=== PATIENT | female | born 1930 | race Caucasian/White ===

== ENCOUNTER → 2018-12-24 | Outpatient (CLI) | payer OTHER ==
[~2018-12-24] MED LIST: ACID REDUCER10 MG PO; ADVIL200 M1 PO; AMARYL1 M1 PO; AMLODIPINE10 MG PO; ASPIR LOW81 MG PO; ASPIRIN CHILDRE81 MG PO; ATIVAN0.5 MG PO; CARVEDILOL6.25 MG PO; CEFDINIR300 MG PO; CYCLOBENZAPRINE10 MG PO; DIABETA2.5 MG PO; DOXYCYCLINE100 M3 PO; ERY PO; FERRETTS325 MG PO; FLORASTOR250 MG PO; GLIPIZIDE5 MG PO; HEPARIN SO5000 UNIT2 SC; HYDROCODONE BIT1 T11 PO; LASIX20 MG PO; LISINOPRIL-HYDR1 TA1 PO; LOPRESSOR25 MG PO; METFORMIN1000 MG PO; METFORMIN500 MG PO; MOBIC15 MG PO; MOTRIN800 MG PO; MUCINEX ER600 MG PO; MULTI-VITAMINS1 TA1 PO; NEURONTIN300 MG PO; NEXIUM40 MG PO; NORCO 10-325 T1 EACH PO; NOVOLOG10 ML IV; OMNICEF300 MG PO; PLAVIX75 M1 PO; REMERON15 M2 PO; Synthroid,Levo50 MCG PO; TOPROL XL25 MG PO; TRAMADOL HCL50 MG PO; TRIAMTERENE/HCT1 CAP PO; VITAMIN C500 M4 PO; VITAMIN D10000 UNIT PO; VITAMIN D50000 UNIT PO; XANAX0.25 MG PO; XANAX0.5 MG PO; ZINC SULFATE220 M2 PO
== END | disposition home or self-care (01) ==
LOC: RAD 11:36
DX: R06.2 Wheezing (principal); R09.89 Other specified symptoms and signs involving the circulatory and respiratory systems; R05 Cough; E11.9 Type 2 diabetes mellitus without complications; I10 Essential (primary) hypertension; Z95.1 Presence of aortocoronary bypass graft

== ENCOUNTER 2019-03-28 20:25 | Inpatient (IN) | payer OTHER ==
[~2019-03-28] VITALS: Ht 155 cm; Wt 53.6 kg
--- NOTE | ~2019-03-28 | EKG ---
[employer], [place] ELECTROCARDIOGRAM REPORT NAME: SÁNCHEZ MIRAMONTES UNIT #: [id number] ROOM: 511 DOCTOR: KARLI DRAFT REPORT BIRTHDATE: [birth year] [facility] Test Date: 2019-03-28 Test Time: 20:26:49 Pat Name: SÁNCHEZ MIRAMONTES Department: ER Room: 511 Gender: F Dry Lumber Grader: : 1930 Requested By: LUPE MILLER Order Number: [id number] Reading MD: Travis Regalado MD Measurements Intervals [place] Rate: 82 P: 8 WY: 172 QRS: -60 QRSD: 134 T: 76 QT: 427 QTc: 499 Interpretive Statements Sinus rhythm Supraventricular bigeminy RBBB and LAFB Probable left ventricular hypertrophy Electronically Signed On 03-29-2019 15:06:05 PDT by Travis Regalado MD CM:EKGRPT:ELECTROCARDIOGRAM REPORT 25 1506 LUPE GOMEZ DRAFT REPORT LUPE MILLER DO
[~2019-03-28 20:25] MED LIST changes: -CARVEDILOL6.25 MG PO; -LASIX20 MG PO; -MUCINEX ER600 MG PO
[2019-03-28 21:06] LABS: HEMATOCRIT 30.7 % (37.0-47.0); MEAN CELL VOLUME 97.5 fl (81.0-99.0); MEAN CORPUSCULAR HGB 31.7 pg (27.0-31.0); MEAN CORPUSCULAR HGB CONC 32.6 g/dl (33.0-37.0); MEAN PLATELET VOLUME 10.3 fl (9.6-12.3); NUCLEATED RED BLOOD CELL 0.1 10*3/uL (0.0-0.0); NUCLEATED RED BLOOD CELL 0.8 % (0.0-0.0); PLATELET COUNT AUTOMATED 360 10*3/uL (130-400); RED BLOOD COUNT 3.15 10*6/uL (4.10-5.10); RED CELL DISTRI WIDTH 17.3 % (0-14.5); WHITE BLOOD COUNT 13.3 10*3/uL (4.8-10.8)
[2019-03-28 21:23] LABS: ALBUMIN 3.1 gm/dl (3.1-4.5); CREATININE 1.33 mg/dL (0.55-1.02); POTASSIUM 4.4 mmol/L (3.5-5.1); TOTAL PROTEIN 7.5 gm/dL (6.4-8.2)
[2019-03-28 21:24] LABS: TROPONIN I 0.036 ng/ml (<0.045)
[2019-03-28 21:30] LABS: OVALOCYTES FEW; POLYCHROMASIA SLIGHT; TOTAL CELLS COUNTED 100 #CELLS
[2019-03-28 21:31] LABS: PLATELET SUFFICIENCY NORMAL (NORMAL)
[2019-03-28 22:32] LABS: ACT PARTIAL THROMBO TIME 25.6 SECONDS (20.0-32.1); INTERNATIONAL NORM RATIO 1.1 (2.0-3.5)
[2019-03-28 23:01] VITALS: BP 132/82
[2019-03-29] VITALS (10 sets, daily range): BP systolic 132–176; BP diastolic 56–86
--- NOTE | 2019-03-29 00:21 | NUR ---
A 88, admitted to 5E, under the services of REHAN Cook DO with a diagnosis of CHF, SEVERE SEPSIS, PNA. Chief complaint is SOB. Patient arrived via ambulatory from ER. Monitor applied. Initial assessment completed. Vital signs taken and recorded. REHAN COOK DO notified of admission to the unit. Orders received. See assessment for past medical history, medications and allergies. Patient and/or family oriented to unit. [facility] visitation policy reviewed. Clothing/patient valuable form completed. MARGIE SHEA
--- NOTE | 2019-03-29 00:30 | NUR ---
MEDICATION RECONCILIATION COMPLETED WITH [id number]. PHARMACY UPDATED.
[2019-03-29 06:27] LABS: HEMATOCRIT 29.6 % (37.0-47.0); HEMOGLOBIN 9.5 g/dl (12.0-16.0); MEAN CELL VOLUME 97.7 fl (81.0-99.0); MEAN CORPUSCULAR HGB 31.4 pg (27.0-31.0); MEAN CORPUSCULAR HGB CONC 32.1 g/dl (33.0-37.0); MEAN PLATELET VOLUME 10.6 fl (9.6-12.3); NUCLEATED RED BLOOD CELL 0.1 10*3/uL (0.0-0.0); NUCLEATED RED BLOOD CELL 0.7 % (0.0-0.0); PLATELET COUNT AUTOMATED 360 10*3/uL (130-400); RED BLOOD COUNT 3.03 10*6/uL (4.10-5.10); RED CELL DISTRI WIDTH 17.2 % (0-14.5)
[2019-03-29 06:40] LABS: CREATININE 1.21 mg/dL (0.55-1.02); PHOSPHOROUS 3.2 mg/dL (2.5-4.9); POTASSIUM 4.1 mmol/L (3.5-5.1)
[2019-03-29 06:47] LABS: THYROID STIM HORMONE (HS) 1.71 uIU/ml (0.358-4.75)
[2019-03-29 06:56] LABS: ACANTHOCYTES FEW; OVALOCYTES FEW; PLATELET SUFFICIENCY NORMAL (NORMAL); TOTAL CELLS COUNTED 100 #CELLS
--- NOTE | 2019-03-29 08:46 | NUR ---
PT COMPLAIN OF GENERALIZED ARTHRITIS PAIN, TYLENOL GIVEN PER PATIENT REQUEST. WILL MONITOR FOR EFFECTIVENESS
--- NOTE | 2019-03-29 09:27 | NUR ---
SÁNCHEZ MIRAMONTES [id number] Please refer to the physician's history and physical for past medical history, comorbid conditions, and allergies. Diagnosis: CHF SEVERE SEPSIS PNEUMONIA Donovan Score: 19,LOW OR NO RISK WOUND DESCRIPTIONS: Wound Number: 1 Location of the wound: LEFT LOWER LEG Type of wound: SURGICAL Thickness: Partial Size: 1.6cm X 0.8cm X 0.2cm Tunneling: NONE Undermining: NONE Sinus Tract: NONE Presence of Exudate: NONE Amount: None Color: [place] Odor: None Periwound Skin Appearance: Scar Wound edges: APPROXIMATED Pain (associated with wound): DENIED AT TIME OF ASSESSMENT How does patient state this happened? PATIENT STATES THAT SHE HAD SURGERY "ABOUT A YEAR AGO AND IT NEVER HEALED RIGHT." If wound is on legs/feet or hands, capillary refill time, pulses, color temp, sensation: CAP REFILL <3 SECONDS. COLOR AND TEMP WITH IN NORMAL LIMITS. Surface the patient is resting on: Isoflex SKIN PREVENTION RECOMMENDATION: 1. Pressure redistribution support surface as appropriate 2. Elevate heels 3. Remove boots/TEDS every shift and reapply 4. Head of bed 30 degrees as tolerated 5. Assess nutrition and hydration 6. Manage moisture 7. Avoid the use of containment devices while in bed 8. Use absorptive products on surfaces limit layers of linens on bed 9. Turn and reposition every 1-2 hours in bed and every 1 hour in chair as tolerated 10. Weight shifts every 15 minutes while up in chair 11. Offloading with pillows or device to keep heels elevated off bed 12. Monitor skin at least every shift 13. Inspect under medical devices twice a day WOUND TREATMENT RECOMMENDATIONS: PARTIAL THICKNESS GUIDELINES TO LEFT LOWER LEG: CLEANSE WITH NSS APPLY SUREPREP AROUND THE WOUND ALLOW TO DRY APPLY HYDROGEL AND COVER WITH OPTIFOAM GENTLE.
--- NOTE | 2019-03-29 11:07 | NUR ---
Dr. Santana notified of wound care recommendations.
--- NOTE | 2019-03-29 14:57 | NUR ---
PHYSICAL THERAPY Patient evaluated on 5, full evaluation to follow. Continue with PT as per plan of care with fall and acute debility precautions. Home with family (A) And home health RN and PT prn recommended. PAtient is moderate complexity via chart review, tests and evaluation: 29052. Thank you for this referral. Barbara Arreola,PT
--- NOTE | 2019-03-29 15:21 | NUR ---
Sql Report Writer in to talk to patient. Patient states lives at HOME with CLAUDIA. There are FEW steps in the home. Physician: NONE AT THIS TIME [facility] Home health services: NONE Patient's level of ADLs: INDEPENDENT Patient has working utilities: YES DME: CANE Follow-up physician's appointment after d/c: WILL GET ONE AND MAKE APPOINTMENT ON DISCHARGE Does patient want to access PORTAL?: NO Discharge plan PT LIVES AT HOME WITH HER GRANDSON AND IS INDEPENDENT IN HER CARE. DENIES ANY NEEDS ON DISCHARGE. STATES SHE IS GOING TO RETURN HOME ON DISCHARGE. STATES SHE USES A CANE OCCASIONALLY IF SHE NEEDS IT. WILL CONTINUE TO FOLLOW. GRANDSON WILL TAKE HER HOME.. ABNER UP
[2019-03-30] VITALS: BP 145/62
[2019-03-30 06:58] LABS: HEMATOCRIT 29.4 % (37.0-47.0); HEMOGLOBIN 9.5 g/dl (12.0-16.0); MEAN CELL VOLUME 98.3 fl (81.0-99.0); MEAN CORPUSCULAR HGB 31.8 pg (27.0-31.0); MEAN CORPUSCULAR HGB CONC 32.3 g/dl (33.0-37.0); MEAN PLATELET VOLUME 10.7 fl (9.6-12.3); NUCLEATED RED BLOOD CELL 0.1 10*3/uL (0.0-0.0); NUCLEATED RED BLOOD CELL 0.7 % (0.0-0.0); PLATELET COUNT AUTOMATED 350 10*3/uL (130-400); RED BLOOD COUNT 2.99 10*6/uL (4.10-5.10); RED CELL DISTRI WIDTH 17.5 % (0-14.5); WHITE BLOOD COUNT 8.1 10*3/uL (4.8-10.8)
[2019-03-30 07:15] LABS: POTASSIUM 3.9 mmol/L (3.5-5.1)
[2019-03-30 07:35] LABS: CREATININE 1.2 mg/dL (0.55-1.02)
[2019-03-30 07:36] LABS: OVALOCYTES FEW; PLATELET SUFFICIENCY NORMAL (NORMAL); POLYCHROMASIA SLIGHT; TOTAL CELLS COUNTED 100 #CELLS
[2019-03-30 08:00] VITALS: BP 140/68
--- NOTE | 2019-03-30 11:40 | NUR ---
PHYSICAL THERAPY Patient was approached several times this am for therapy and was eating breakfast on first attempt, then resting comfortably in bed second attempt. Patient requested to be seen this pm, stating she was tired and wanted to continue to rest this morning. Will continue per POC as able. Hossein Amaya, SMART ENERGY SPECIALIST
[2019-03-30 12:00] VITALS: BP 153/80
--- NOTE | 2019-03-30 12:35 | NUR ---
DR. HARRIS NOTIFIED OF BLOOD SUGAR OF 495 PER GLUCOMETER, OKAY TO GIVE INSULIN PER SLIDING SCALE. PLEASE CHECK BLOOD SUGAR IN ONE HOUR AND CALL WITH RESULTS
--- NOTE | 2019-03-30 12:50 | NUR ---
CONTINUES TO DENY NEEDS ON DISCHARGE. STATES SHE WILL RETURN HOME WITH GRANDSON. WILL CONTINUE TO FOLLOW.
--- NOTE | 2019-03-30 14:40 | NUR ---
PHYSICAL THERAPY Patient seen this pm 1;1 for therapy visit and was just finishing lunch in bed upon therapist arrival. Patient was pleasant and presented with several bouts of increased non productive coughing, along with increased chest congestion. Patient transfers supine to sit EOB and sit to stand CGA x 1 then ambulates with use of st cane, 50'x 1, CGA. Patient demonstrates slow ana, several bouts of unsteady gait pattern and increased fatigue / SOB. Patient instructed on purse lip breathing technique and recorded SpO2 93%, HR 62 bpm on room air. Patient returned to supine in bed and remained with call light, tray table, telephone and bed alarm for safety. Will continue per POC as tolerated, total treatment time 14 minutes. Hossein Amaya, WET TRIMMER
[2019-03-30 16:00] VITALS: BP 158/53
[2019-03-30 20:00] VITALS: BP 155/52
[2019-03-31] VITALS: BP 111/39
[2019-03-31 06:52] LABS: CREATININE 1.33 mg/dL (0.55-1.02)
[2019-03-31 12:00] VITALS: BP 110/80
--- NOTE | 2019-03-31 12:37 | NUR ---
PT WILL BE DISCHARGED TO HOME WHEN MEDICALLY STABLE. WILL CONTINUE TO FOLLOW.
[2019-03-31] MEDS ORDERED: DOXYCYCLINE100 M3 PO (14:29)
[2019-03-31] MEDS ORDERED: MUCINEX ER600 MG PO (14:29)
[2019-03-31] MEDS ORDERED: LASIX20 MG PO (14:29)
[2019-03-31] MEDS ORDERED: CARVEDILOL6.25 MG PO (14:29)
--- NOTE | 2019-03-31 15:35 | NUR ---
PT DISCHARGED HOME AT THIS TIME VIA WHEELCHAIR TO PRIVATE CAR. DISCHARGE INSTRUCTIONS REVIEWED. HEPLOCK AND WEIGHT REDUCING TECHNICIAN DISCONTINUED. PRESCRIPTIONS TO BE PICKED UP AT PHARMACY.
--- NOTE | 2019-04-01 07:21 | NUR ---
PHYSICAL THERAPY CO-SIGN I approve of the Phyical Therapy notes written above. KACI MARKHAM PT
== END 2019-03-31 15:35 | disposition home or self-care (01) | DRG 871 ==
LOC: ED 20:25 → EDHOLD 22:37 → 5E 22:37
PROVIDERS: Internal Medicine; Student in an Organized Health Care Education/Training Program; ADMIT Internal Medicine
DX: A41.9 Sepsis, unspecified organism (principal); I50.41 Acute combined systolic (congestive) and diastolic (congestive) heart failure; J18.1 Lobar pneumonia, unspecified organism; J44.0 Chronic obstructive pulmonary disease with (acute) lower respiratory infection; E44.0 Moderate protein-calorie malnutrition; I13.0 Hypertensive heart and chronic kidney disease with heart failure and stage 1 through stage 4 chronic kidney disease, or unspecified chronic kidney disease; R65.20 Severe sepsis without septic shock; I25.10 Atherosclerotic heart disease of native coronary artery without angina pectoris; F03.90 Unspecified dementia, unspecified severity, without behavioral disturbance, psychotic disturbance, mood disturbance, and anxiety; E11.22 Type 2 diabetes mellitus with diabetic chronic kidney disease; M19.90 Unspecified osteoarthritis, unspecified site; R29.6 Repeated falls; M43.10 Spondylolisthesis, site unspecified; I08.1 Rheumatic disorders of both mitral and tricuspid valves; E11.65 Type 2 diabetes mellitus with hyperglycemia; E03.9 Hypothyroidism, unspecified; D64.9 Anemia, unspecified; N18.2 Chronic kidney disease, stage 2 (mild); I25.2 Old myocardial infarction; Z90.49 Acquired absence of other specified parts of digestive tract; Z95.1 Presence of aortocoronary bypass graft; Z98.42 Cataract extraction status, left eye; Z98.41 Cataract extraction status, right eye; Z90.710 Acquired absence of both cervix and uterus; Z82.49 Family history of ischemic heart disease and other diseases of the circulatory system; Z80.8 Family history of malignant neoplasm of other organs or systems; Z88.2 Allergy status to sulfonamides; Z79.899 Other long term (current) drug therapy; Z79.82 Long term (current) use of aspirin; Z79.890 Hormone replacement therapy; Z79.84 Long term (current) use of oral hypoglycemic drugs; Z68.21 Body mass index [BMI] 21.0-21.9, adult

== ENCOUNTER 2019-04-29 16:00 | Emergency (ER) | payer OTHER ==
[~2019-04-29] VITALS: Ht 157.4 cm; Wt 68.0 kg
[~2019-04-29 16:00] MED LIST changes: +CARVEDILOL6.25 MG PO; +LASIX20 MG PO; +MUCINEX ER600 MG PO
[2019-04-29 16:03] VITALS: BP 177/51
[2019-04-29 17:32] LABS: BASO # 0.1 10*3/uL (0.0-0.1); BASO % 0.8 % (0.0-1.0); EOS # 0.1 10*3/uL (0.0-0.4); EOS % 1.2 % (1.0-4.0); HEMATOCRIT 33.1 % (37.0-47.0); HEMOGLOBIN 11.3 g/dl (12.0-16.0); LYMPH # 2.2 10*3/uL (1.3-4.4); LYMPH % 36.1 % (27.0-41.0); MEAN CELL VOLUME 96.8 fl (81.0-99.0); MEAN CORPUSCULAR HGB CONC 34.1 g/dl (33.0-37.0); MEAN PLATELET VOLUME 10.7 fl (9.6-12.3); MONO # 0.4 10*3/uL (0.1-1.0); MONO % 6.3 % (3.0-9.0); NEUT # 3.3 10*3/uL (2.3-7.9); NEUT % 55.1 % (47.0-73.0); PLATELET COUNT AUTOMATED 193 10*3/uL (130-400); RED BLOOD COUNT 3.42 10*6/uL (4.10-5.10); RED CELL DISTRI WIDTH 18.6 % (0-14.5); WHITE BLOOD COUNT 6.1 10*3/uL (4.8-10.8)
[2019-04-29 17:49] LABS: ALBUMIN 3.7 gm/dl (3.1-4.5); CREATININE 1.37 mg/dL (0.55-1.02); POTASSIUM 3.6 mmol/L (3.5-5.1); TOTAL PROTEIN 7.2 gm/dL (6.4-8.2)
== END 2019-04-29 20:08 | disposition home or self-care (01) ==
LOC: ED 16:00
PROVIDERS: Emergency Medicine
DX: E11.65 Type 2 diabetes mellitus with hyperglycemia (principal); E11.22 Type 2 diabetes mellitus with diabetic chronic kidney disease; I13.0 Hypertensive heart and chronic kidney disease with heart failure and stage 1 through stage 4 chronic kidney disease, or unspecified chronic kidney disease; N18.2 Chronic kidney disease, stage 2 (mild); I50.42 Chronic combined systolic (congestive) and diastolic (congestive) heart failure; I25.10 Atherosclerotic heart disease of native coronary artery without angina pectoris; J44.9 Chronic obstructive pulmonary disease, unspecified; I25.2 Old myocardial infarction; E03.9 Hypothyroidism, unspecified; M19.90 Unspecified osteoarthritis, unspecified site; Z88.2 Allergy status to sulfonamides; Z79.899 Other long term (current) drug therapy; Z79.2 Long term (current) use of antibiotics; Z79.82 Long term (current) use of aspirin; Z79.84 Long term (current) use of oral hypoglycemic drugs; Z90.49 Acquired absence of other specified parts of digestive tract; Z90.710 Acquired absence of both cervix and uterus; Z95.1 Presence of aortocoronary bypass graft

== ENCOUNTER 2019-08-24 20:15 | Emergency (ER) | payer OTHER ==
[~2019-08-24] VITALS: Wt 52.2 kg
[2019-08-24 20:18] VITALS: BP 98/62
== END 2019-08-24 21:58 | disposition home or self-care (01) ==
LOC: ED 20:15
DX: S93.402A Sprain of unspecified ligament of left ankle, initial encounter (principal); E11.22 Type 2 diabetes mellitus with diabetic chronic kidney disease; I13.0 Hypertensive heart and chronic kidney disease with heart failure and stage 1 through stage 4 chronic kidney disease, or unspecified chronic kidney disease; N18.2 Chronic kidney disease, stage 2 (mild); I50.42 Chronic combined systolic (congestive) and diastolic (congestive) heart failure; I25.10 Atherosclerotic heart disease of native coronary artery without angina pectoris; J44.9 Chronic obstructive pulmonary disease, unspecified; F03.90 Unspecified dementia, unspecified severity, without behavioral disturbance, psychotic disturbance, mood disturbance, and anxiety; I25.2 Old myocardial infarction; E03.9 Hypothyroidism, unspecified; Z88.2 Allergy status to sulfonamides; Z79.899 Other long term (current) drug therapy; Z79.2 Long term (current) use of antibiotics; Z79.82 Long term (current) use of aspirin; X58.XXXA Exposure to other specified factors, initial encounter; Y93.89 Activity, other specified; Y92.89 Other specified places as the place of occurrence of the external cause; Y99.8 Other external cause status

== ENCOUNTER 2019-08-26 17:22 | Inpatient (IN) | payer OTHER ==
[~2019-08-26] VITALS: Ht 157.4 cm; Wt 48.8 kg
--- NOTE | ~2019-08-26 | CON ---
[place], [place] REPORT OF CONSULTATION NAME: SÁNCHEZ MIRAMONTES UNIT #: [id number] ROOM: 506 DOCTOR: WHITNEY BROWN MD BIRTHDATE: [birth year] DOS: 08/27/2019 ATTENDING: Dr. Olivarez. CONSULTING: Savannah Brown M.D. WHAT: Left lower extremity. HOW: Insidious. WHEN: Over the last 3 months to 4 months. WHERE: At home. HISTORY OF PRESENT ILLNESS: This is an 89-year-old female who was admitted for inability to ambulate and pain in the left lower extremity. The patient states she recalls no exact injury to the left lower extremity. She has been in the Emergency Room twice within the last week. Initially, x-rays were obtained on the foot and ankle, which were felt to be normal. Knee x-rays were obtained on the second visit along with CT scan of the left lower extremity yesterday. The CT scan revealed severe osteoarthritis in the patellofemoral joint, but no obvious fracture dislocation of the tibia/fibula from the knee all the way down to the ankle. There was also no femoral fracture noted in the knee region. PAST MEDICAL HISTORY: See H and P. PAST SURGICAL HISTORY: No major left knee surgery. No major orthopedic surgery. MEDICATIONS: Home medications include Plavix, Amaryl, Synthroid, multivitamins. ALLERGIES: SULFA MEDICATIONS. FAMILY HISTORY: Noncontributory. SOCIAL HISTORY: The patient lives with a grandson, does not drink alcohol and she is a nonsmoker. REVIEW OF SYSTEMS: Ten-point review of systems is negative from an orthopedic standpoint. PHYSICAL EXAMINATION: VITAL SIGNS: Stable and afebrile. LEFT LOWER EXTREMITY: The patient has [id number] genu valgum in the left knee. No palpable or visible effusion is present. Inspection of the left lower extremity does show a 15 cm healed laceration over the medial head of the gastrocnemius and the tibial shaft, which is oblique and has a very small punctate erythematous abrasion type appearance distally. This small erythematous region may be granulation tissue and appears to be less than 5 mm in diameter. Left knee motion, she extends to 5 degrees and flexes to 80 [place], [place] REPORT OF CONSULTATION NAME: SÁNCHEZ MIRAMONTES UNIT #: [id number] ROOM: 506 DOCTOR: WHITNEY BROWN MD BIRTHDATE: [birth year] degrees. She has pain with simply brushing my fingers over the skin of the knee. This is true medially, laterally and anteriorly. There is no palpable effusion present. She has some mild swelling in the left lower extremity with pain increasing in the left foot and ankle with simple soft touch, even on the plantar aspect and simply just brushing lightly across the plantar aspect of the foot. She moves well into plantarflexion and dorsiflexion of the foot. The right foot was checked and does not have similar pain. The upper extremity was checked and does not have similar pain. There is some mild swelling and mottled appearance of the left lower extremity without loss of capillary refill. Again, the patient seems hypersensitive in the entire left lower extremity. IMAGING: CT scan, plain films of the left knee, left ankle and left foot were reviewed. The patient has no evidence of fracture or dislocation of any of the above regions. She does have severe patellofemoral osteoarthritis on both CT scan and radiographs. IMPRESSION: 1. 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 2. Osteoarthritis, left knee. PLAN: This patient is in a difficult situation. I would recommend beginning therapy immediately. No single medication has been shown to be effective for all patients with this condition. She may be placed carefully on a low dose of Elavil q.p.m. with some improvement seen in a few patients in my experience. The most important thing is to be on a physical therapy program daily, so she probably needs to be admitted to a detention. There is no point in evaluation for further treatment of the knee at this time, as it would be contraindicated. She may follow up with us in 3-6 months when she is over the reflex sympathetic dystrophy. Should she not improve with physical therapy, a referral to pain management may be appropriate for consideration of lumbar plexus block. WHITNEY BROWN MD CM:CONSTR:REPORT OF CONSULTATION 1012 08/27/19 1042 interface
[2019-08-26 17:25] VITALS: BP 172/64
[2019-08-26 18:25] LABS: BASO % 0.2 % (0.0-1.0); EOS # 0.1 10*3/uL (0.0-0.4); EOS % 0.8 % (1.0-4.0); HEMOGLOBIN 9.4 g/dl (12.0-16.0); LYMPH # 1.8 10*3/uL (1.3-4.4); LYMPH % 21.4 % (27.0-41.0); MEAN CELL VOLUME 98.2 fl (81.0-99.0); MEAN CORPUSCULAR HGB CONC 33.6 g/dl (33.0-37.0); MEAN PLATELET VOLUME 10.4 fl (9.6-12.3); MONO # 0.6 10*3/uL (0.1-1.0); MONO % 7.4 % (3.0-9.0); NEUT # 5.7 10*3/uL (2.3-7.9); PLATELET COUNT AUTOMATED 190 10*3/uL (130-400); RED BLOOD COUNT 2.85 10*6/uL (4.10-5.10); WHITE BLOOD COUNT 8.3 10*3/uL (4.8-10.8)
[2019-08-26 18:44] LABS: ALBUMIN 3.1 gm/dl (3.1-4.5); CREATININE 1.12 mg/dL (0.55-1.02); POTASSIUM 4.2 mmol/L (3.5-5.1); TOTAL PROTEIN 7.3 gm/dL (6.4-8.2); URIC ACID 5.6 mg/dL (2.6-6.0)
[2019-08-26 22:20] VITALS: BP 162/83
--- NOTE | 2019-08-26 22:20 | NUR ---
Time: 2219 A 89 year old FEMALE admitted to 5E under services of REHAN COOK DO. Pt. arrived via stretcher from ER. Chief complaint: CAME IN WITH INABILITY TO AN]MBULATE D/T PAIN FROM FALL. JEANE ESPINAL
[2019-08-26] MEDS ORDERED: TOPROL XL25 MG PO (23:13)
[2019-08-26] MEDS ORDERED: VITAMIN D50000 UNIT PO (23:14)
[2019-08-27] VITALS: BP 144/57
[2019-08-27 06:43] LABS: BASO % 0.5 % (0.0-1.0); EOS # 0.2 10*3/uL (0.0-0.4); EOS % 2.4 % (1.0-4.0); HEMATOCRIT 28.5 % (37.0-47.0); HEMOGLOBIN 9.5 g/dl (12.0-16.0); LYMPH # 1.4 10*3/uL (1.3-4.4); LYMPH % 20.8 % (27.0-41.0); MEAN CELL VOLUME 98.3 fl (81.0-99.0); MEAN CORPUSCULAR HGB 32.8 pg (27.0-31.0); MEAN CORPUSCULAR HGB CONC 33.3 g/dl (33.0-37.0); MEAN PLATELET VOLUME 10.6 fl (9.6-12.3); MONO # 0.5 10*3/uL (0.1-1.0); MONO % 8.2 % (3.0-9.0); NEUT # 4.4 10*3/uL (2.3-7.9); NEUT % 66.3 % (47.0-73.0); PLATELET COUNT AUTOMATED 205 10*3/uL (130-400); RED CELL DISTRI WIDTH 17.2 % (0-14.5); WHITE BLOOD COUNT 6.6 10*3/uL (4.8-10.8)
[2019-08-27 06:57] LABS: CREATININE 1.1 mg/dL (0.55-1.02); POTASSIUM 3.7 mmol/L (3.5-5.1)
--- NOTE | 2019-08-27 07:40 | NUR ---
PRECERT is required for SNF placement. RESEARCH AFFILIATE received notice the patient would like to be referred to [facility]. RESEARCH AFFILIATE faxed new referral to [facility]. -JOSE Morrow
[2019-08-27 08:00] VITALS: BP 142/65
[2019-08-27 12:00] VITALS: BP 136/62
--- NOTE | 2019-08-27 12:27 | NUR ---
PHYSICAL THERAPY Eval complete, moderate level of complexity -08634. PT to work on transfes, rom, strength, amb. Recommend SNF at discharg. Thank you Kim Arenas PT
--- NOTE | 2019-08-27 12:32 | NUR ---
PHYSICAL THERAPY Nursing screen and Physical therapy referral received. PT evaluation performed 08/27/19. thank you Ernestina Vu, PT, DPT
--- NOTE | 2019-08-27 12:57 | NUR ---
Marketing Intelligence Analyst in to talk to patient. Patient states lives at HOME with CLAUDIA. There are SEVERAL steps in the home. Physician: DIMITRI TREJO [facility]: [facility] Home health services: NONE Patient's level of ADLs: INDEPENDENT Patient has working utilities: YES DME: [facility] [employer] [facility] Follow-up physician's appointment after d/c: WILL BE MADE BY HOSPITALIST NURSE DIRECTOR ON DISCHARGE Does patient want to access PORTAL?: NO Discharge plan PT LIVES AT HOME WITH HER GRANDSON AND IS NORMALLY INDEPENDENT IN HER CARE, BUT KNOW HAS TOO MUCH PAIN IN LEG AND KNEE. STATES GRANDSON HAS HAD TO PICK HER UP AND MOVE HER DUE TO PAIN. TALKED WITH PT ABOUT SNF BUT SHE STATES I AM GOING HOME, DID GET HER TO AGREE TO WAITING TO SEE HOW SHE DID WITH PT TO MAKE DECISION. PT AGREES BUT STATES I AM GOING HOME. WILL CONTINUE TO FOLLOW. WILL HAVE A RIDE HOME IF SHE GOES HOME.. ABNER UP
--- NOTE | 2019-08-27 13:06 | NUR ---
DR. RAMON SAW PATIENT THIS AM. STAED SHE HAS RSD. SHE MUST HAVE 6 WEEKS THERAPY AT A REHAB FACILITY BEFORE [facility]Z CAN DO ANYTHING FOR THE KNEE. WILL PASS ON IN REPORT.
--- NOTE | 2019-08-27 14:00 | NUR ---
Occupational Therapy evaluation completed on 5 with full eval to follow. PRecautions include severe LLE pain and hypersensitivity,impaired ADLs, poor stand tolerance and fall risk. Recommend OT for ADL training, standing tolerance, functional transfers and safety w/ new ww and SNF to enable return home at [facility]. Thank you. Roshni Correa OTR/l
--- NOTE | 2019-08-27 14:20 | NUR ---
PT WAS UNABLE TO WORK WITH PT TODAY DUE TO PAIN. TALKED TO HER AGAIN ABOUT SKILLED STAY, STATES SHE DOES NOT WANT TO BUT IF THAT IS THE ONLY CHOICE SHE HAS SHE WILL GO. REFERRAL HAS ALREADY BEEN SENT TO [facility] THIS AM. WILL CONTINUE TO FOLLOW.
--- NOTE | 2019-08-27 14:51 | NUR ---
WASTE WATER OPERATOR faxed updates and Evals to [facility]. WASTE WATER OPERATOR asked to have PRECERT started. -JOSE Morrow
[2019-08-27 16:00] VITALS: BP 132/62
[2019-08-27 20:00] VITALS: BP 155/55
--- NOTE | 2019-08-27 22:45 | NUR ---
BLOOD SUGAR 445. COVERAGE PROVIDED PER S/S. DR AMADO NOTIFIED.
[2019-08-28] VITALS: BP 130/72
--- NOTE | 2019-08-28 02:06 | NUR ---
24 HR chart check completed.
--- NOTE | 2019-08-28 06:10 | NUR ---
PATIENT MEDICATED WITH TYLENOL PER PRN ORDER FOR C/O KNEE PAIN. SEE EMAR. REINFORCED USE OF CALL LIGHT.
[2019-08-28 08:00] VITALS: BP 144/41
--- NOTE | 2019-08-28 09:39 | NUR ---
[place] given for c/o L/knee pain. Will monitor.
--- NOTE | 2019-08-28 10:15 | NUR ---
[place] effective. Patient asleep with respirations >12.
--- NOTE | 2019-08-28 10:49 | NUR ---
PHYSICAL THERAPY Patient seen this AM [facility] therapy session. Patient supine in bed at time of arrival. Patient reports increased pain 10/10 in LLE (ankle and knee) this date. Patient was agreeable to perform limited mobility/activity and states she will "try her hardest". Patient performed bed mobility- supine->sit requiring SBA and increased time for completion due to pain in LLE. Pt performed sit<>stand transfer x 3 trials EOB->FWW requiring minAx2 initially,- decreasing to minAx1 with cues for hand/foot placement and ant weight shift. Patient required minAx1 once standing for safety due to inability to tolerate full WBing on LLE. Patient provided cues for WSing and use of arms in order to off-load weight on LLE. Patient tolerated static standing for ~1.5 minutes up to 3 minutes max prior to requesting to sit. Patient performed limited seated B LE ther-ex, AROM RLE, AAROM/PROM on LLE; for strength, endurance and ROM: LAQs, ankle PF/DF x 15 reps. Patient required frequent rest breaks throughout. Patient demonstrates increased guarding of LLE and fear of touching. Pt performed sit->supine bed mobility with SBA and increased time for completion, followed by bridging with R LE in order to scoot to HOB. Patient supine with call light within reach at session end. Patient reports no new c/o's. Rebecca Berumen, FEED CRUSHER OPERATOR
[2019-08-28 12:00] VITALS: BP 148/52
[2019-08-28 16:00] VITALS: BP 154/78
--- NOTE | 2019-08-28 17:42 | NUR ---
[place] given per patient request for c/o pain in her r knee rated 6/10. Will monitor.
--- NOTE | 2019-08-28 17:42 | NUR ---
[place] given per patient request for c/o pain in left knee. Will monitor.
--- NOTE | 2019-08-28 18:15 | NUR ---
[place] effective. Patient states she doesn't feel anything.
[2019-08-28 20:00] VITALS: BP 132/46
--- NOTE | 2019-08-28 22:00 | NUR ---
BLOOD SUGAR 285
--- NOTE | 2019-08-28 23:54 | NUR ---
Patient resting quietly with no c/o discomfort. Respirations easy and regular. Vital signs stable. No overt distress. CALL LIGHT WITHIN REACH. BED ALARM ON. LALYAILS UP [place],KAL
[2019-08-29] VITALS: BP 144/63
--- NOTE | 2019-08-29 02:27 | NUR ---
PT COMPLAINS OF 7/10 KNEE PAIN. MEDICATED PER ORDER. WILL CONTINUE TO MONITOR FOR RELIEF. VOICES NO OTHER CONCERNS AT THIS TIME. RESTING IN BED. CALL LIGHT WITHIN REACH. BED ALARM ON
--- NOTE | 2019-08-29 02:44 | NUR ---
24 HR chart check completed.
--- NOTE | 2019-08-29 03:23 | NUR ---
NORCO EFFECTIVE PER PT
--- NOTE | 2019-08-29 03:55 | NUR ---
Patient sleeping. Respirations relaxed and easy. Siderails up . [place] on. CALL LIGHT WITHIN REACH. BED ALARM ON [place],KAL
[2019-08-29 06:10] LABS: HEMATOCRIT 29.9 % (37.0-47.0); HEMOGLOBIN 9.7 g/dl (12.0-16.0); MEAN CORPUSCULAR HGB 32.1 pg (27.0-31.0); MEAN CORPUSCULAR HGB CONC 32.4 g/dl (33.0-37.0); MEAN PLATELET VOLUME 10.3 fl (9.6-12.3); PLATELET COUNT AUTOMATED 265 10*3/uL (130-400); RED BLOOD COUNT 3.02 10*6/uL (4.10-5.10); WHITE BLOOD COUNT 6.4 10*3/uL (4.8-10.8)
[2019-08-29 06:16] LABS: BUN 22 mg/dl (7-24); CHLORIDE 102 mmol/L (98-107); CREATININE 1.01 mg/dL (0.55-1.02); POTASSIUM 4.2 mmol/L (3.5-5.1); SODIUM 135 mmol/L (136-145)
[2019-08-29 06:48] LABS: TOTAL CELLS COUNTED 100 #CELLS
[2019-08-29 06:49] LABS: PLATELET SUFFICIENCY NORMAL (NORMAL); POLYCHROMASIA SLIGHT
[2019-08-29 08:00] VITALS: BP 139/86
--- NOTE | 2019-08-29 10:00 | NUR ---
[place] given for patient c/o pain in her left leg. Patient screams with the thought of something touching her leg. Will monitor.
--- NOTE | 2019-08-29 10:45 | NUR ---
[place] effective. Patient asleep with respirations >12.
[2019-08-29 12:00] VITALS: BP 180/68
--- NOTE | 2019-08-29 15:45 | NUR ---
Patient was up in chair and up to bedside commode through out the day.
[2019-08-29 16:00] VITALS: BP 90/53
--- NOTE | 2019-08-29 17:00 | NUR ---
[place] given per patient request for c/o pain in her left knee/leg. Will monitor.
--- NOTE | 2019-08-29 17:50 | NUR ---
[place] effective. Patient satisfied.
[2019-08-29 20:00] VITALS: BP 126/86
--- NOTE | 2019-08-29 22:06 | NUR ---
PATIENT REQUESTING PAIN MEDICATION FOR LEFT KNEE PAIN RATED 8/10 ON 0/10 SCALE. NORCO ADMINISTERED PRESCRIBED. WILL MONITOR FOR EFFECTIVENESS.
--- NOTE | 2019-08-29 23:06 | NUR ---
PATIENT RESTING WITH EYES CLOSED AT THIS TIME. RESPIRATIONS EASY AND UNLABORED. BED ALARM ON AND CALL LIGHT WITHIN REACH. WILL MONITOR.
[2019-08-30] VITALS: BP 152/70
--- NOTE | 2019-08-30 05:17 | NUR ---
PATIENT REQUESTING PAIN MEDICATION FOR LEFT KNEE PAIN RATED 8/10 ON 0/10 SCALE. NORCO ADMINISTERED PRESCRIBED. WILL MONITOR FOR EFFECTIVENESS.
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
--- NOTE | 2019-08-30 07:11 | NUR ---
PRECERT is pending for [facility]. -JOSE Morrow
--- NOTE | 2019-08-30 07:30 | NUR ---
Patient resting quietly with no c/o discomfort. Respirations easy and regular. Vital signs stable. No overt distress. MONTSE HART
[2019-08-30 08:00] VITALS: BP 128/44
--- NOTE | 2019-08-30 08:01 | NUR ---
24 HR chart check completed.
--- NOTE | 2019-08-30 08:15 | NUR ---
PHYSICAL THERAPY PT SUPINE IN BED UPON ARRIVAL WITH BED ALARM ON. PT IDENTIFIED BY NAME AND BOD. PT AGREED TO ALL THERAPY TREATMENT THIS A.M. PT REPORTS 8/10 "STABBING" PAIN IN L KNEE. PT PERFORMED BED MOBILITY WITH [place] X1 TO GO FROM SUPINE TO SIT AND MAXa X2 FOR SIT TO SUPINE. PT REQUIRED MAX VC'S FOR RELAX AND BREATH WHEN GOING FROM SIT TO SUPINE DUE TO PT C/O INCREASED PAIN AND DISCOMFORT IN L KNEE. PT PERFORMED STS FROM EOB WITH MODa X2 WITH VC'S FOR SAFETY, BREATHING AND POSTURE. PT WAS FW FLEXED AT HIP ONCE IN STANDING AND REQUIRED MODa X1 FOR STANDING BALANCE PT WOULD NOT PUT WEIGHT INTO LLE. PT WAS ABLE TO HAVE 2MINS STANDING TOLERACNE AND A 30SEC STANDING TOLERANCE. PT C/O INCREASED PAIN WITH ALL MOVEMENT IN LLE. PT SUPINE IN BED WITH CALL LIGHT IN HAND AND BED ALARM ON AT END OF A.M. SESSION. PT REPORTS NO OTHER NEEDS AT THIS TIME. PT SEEN 1:1 FOR 16MINS. YOKASTA BECKWITH PTA
--- NOTE | 2019-08-30 08:29 | NUR ---
PRECERT has been obtained and is good for today only. Patient is able to go to [facility]. -JOSE Morrow
--- NOTE | 2019-08-30 08:35 | NUR ---
OT NOTE Pt was seen this A.M. 1:1 for 20 minute OT session. Upon arrival pt was supine in bed. Pt identified by name and and had complaints of "5/10 L knee pain." Pt transferred supine to sit EOB with Elvira for assist with LLE management. While sitting EOB pt donned R sock with SBA and L sock with Elvira due to limited range of motion in L knee. Pt completed multiple sit to stand transfers from bed level with modA X 2 CABLE INSPECTOR. Challneged pt's static standing tolerance needed for increased I in self care tasks and functional transfers, pt was able to tolerate aprox 20 sec, 90 seconds, and 30 seconds before sitting due to fatigue. THroughout pt presented with R lateral lean due to placing no weight through her LLE. Educated pt on compensatory techniques while standing and completing transfers and pt had poor carry over. Pt required constant verbal prompts for correcting her posture and holding her head up. Pt then transferred back into bed sit to supine with maxA X 2 due to being unable to self lift her LLE. Pt was left supine in bed with call light in hand, tray table in place, and bed alarm activated for safety. Continue with rec D/C plan to SNF. LAWANDA Bernard
--- NOTE | 2019-08-30 10:00 | NUR ---
MESSAGE LEFT FOR DR LAIRD IN OFFICE TO PLEASE EVALUATE PT THIS AM PER DR JASON.
--- NOTE | 2019-08-30 10:57 | NUR ---
CHILD AND YOUTH PROGRAM ASSISTANT completed HENs. -JOSE Morrow
--- NOTE | 2019-08-30 11:36 | NUR ---
Once patient is discharged family will transport her to [facility]. HARD ROCK MINER notified Work Clerk Belcher as RN Marce was on the phone. -JOSE Morrow
[2019-08-30 12:00] VITALS: BP 152/56
--- NOTE | 2019-08-30 12:00 | NUR ---
MEDICATION SOMEWHAT EFFECTIVE FOR PAIN.
--- NOTE | 2019-08-30 12:40 | NUR ---
PT IS AGREEING TO SNF STAY AT [facility]. FAMILY WILL TRANSPORT PT. PRECERT IS ONLY GOOD FOR TODAY, IF PT DOES NOT GO TODAY WILL NEED RESTARTED.
--- NOTE | 2019-08-30 12:46 | NUR ---
PRECERT is only good for today or it will need to be restarted. Patient family will transport. CORE WORKER faxed updates to [facility]. -JOSE Morrow
--- NOTE | 2019-08-30 14:28 | NUR ---
TAHIR FROM [facility] ASKED SISI IF SHE HAD SEEN THE PT AND DR LAIRD SAID YES BUT TAHIR HAS NO IDEA WHAT HER RECOMMENDATIONS ARE. DR MURRAY AWARE.
[2019-08-30] MEDS ORDERED: AMITRIPTYLINE25 MG PO (14:46)
--- NOTE | 2019-08-30 14:56 | NUR ---
DR MURRAY NOTIFIED THAT SISI WANTS CASIE TO CALL HER ON THE [facility] FLOOR REGARDING PT.
--- NOTE | 2019-08-30 15:11 | NUR ---
JOSE received notice of patient discharge. Patients family works at [facility]. Patients family will transport the patient around 4:30pm today to go to [facility]. [facility] will notify the patients daughter and grandaughter as they both work at [facility]. -JOSE Morrow
--- NOTE | 2019-08-30 15:36 | NUR ---
MAITE TALKED TO OBI AT [facility] AND THAT PT DISCHARGE WAS CANCELLED FOR TODAY DUE TO DR LAIRD WANTING AN MRI ON PT. PT DAUGHTER IN LAW AND GRAND DAUGHTER BOTH WORK AT [facility] AND OBI WILL INFORM THEM THAT DISCHARGE HAS BEEN CANCELLED TODAY.
[2019-08-30 16:00] VITALS: BP 155/68
--- NOTE | 2019-08-30 16:05 | NUR ---
TALKED WITH PT DAUGHTER IN LAW, DANNI AND INFORMED HER THAT DISCHARGE HAS BEEN CANCELLED FOR TODAY DUE TO DR LAIRD WANTING AN MRI DONE ON LEG.
[2019-08-30 20:00] VITALS: BP 144/62
[2019-08-31] VITALS: BP 142/64
--- NOTE | 2019-08-31 07:24 | NUR ---
PRECERT will have to be restarted for [facility]. -JOSE Morrow
[2019-08-31 07:54] LABS: HEMATOCRIT 26.9 % (37.0-47.0); HEMOGLOBIN 8.9 g/dl (12.0-16.0); MEAN CELL VOLUME 97.1 fl (81.0-99.0); MEAN CORPUSCULAR HGB 32.1 pg (27.0-31.0); MEAN CORPUSCULAR HGB CONC 33.1 g/dl (33.0-37.0); MEAN PLATELET VOLUME 9.9 fl (9.6-12.3); PLATELET COUNT AUTOMATED 283 10*3/uL (130-400); RED BLOOD COUNT 2.77 10*6/uL (4.10-5.10); RED CELL DISTRI WIDTH 16.9 % (0-14.5); WHITE BLOOD COUNT 6.9 10*3/uL (4.8-10.8)
[2019-08-31 08:00] VITALS: BP 133/54
[2019-08-31 08:03] LABS: BUN 15 mg/dl (7-24); CHLORIDE 106 mmol/L (98-107); CREATININE 0.98 mg/dL (0.55-1.02); POTASSIUM 4.3 mmol/L (3.5-5.1); SODIUM 137 mmol/L (136-145)
[2019-08-31 08:19] LABS: BASOPHILS 1 % (0-1); OVALOCYTES FEW; PLATELET SUFFICIENCY NORMAL (NORMAL); SCHISTOCYTES FEW; TOTAL CELLS COUNTED 100 #CELLS
[2019-08-31 08:20] LABS: POLYCHROMASIA SLIGHT
--- NOTE | 2019-08-31 10:30 | NUR ---
Baby Stroller Rental Clerk in to see patient. No new needs or request at this time. Discussed short term SNF at [facility] and she remains agreeable. Per multidisciplinary discharge planning meeting she is awaiting an MRI of her left ankle. layout worker following.
--- NOTE | 2019-08-31 11:36 | NUR ---
PRECERT will need to be restarted when patient is medically stable for discharge. -JOSE Morrow
[2019-08-31 12:00] VITALS: BP 131/45
--- NOTE | 2019-08-31 13:40 | NUR ---
OT NOTE Pt was seen this P.M. 1:1 for 20 minute OT session. Upon arrival pt was supine in bed. Pt identified by name and and had complaints of 10/10 L knee pain. Pt transferred supine to sit EOB with Elvira for assist with UB. Sit to stand completed from bed level with modA X 2 and use of w/w for UE support. Challenged pt's static standing tolerance needed for increased I in self care tasks and functional transfers, pt was able to tolerate aprox 20-30 seconds at a time before sitting due to fatigue. Pt then completed standing pivot from the EOB to the bedside commode with maxA. Pt transferred off bedside commode with maxA. MaxA required for clothing management and toilet hygiene. Pt was left supine in bed with call light in hand, tray table in place, and bed alarm activated for safety. Continue with rec D/C plan to SNF. LAWANDA Bernard
--- NOTE | 2019-08-31 14:16 | NUR ---
PHYSICAL THERAPY Patient presented to therapy in supine with head of bed elevated and bed alarm activated. Patient was identified by name and on wristband. Patient gives informed consent for treatment. Patient reports 10/10 pain in the L LE. Patient reports pain in the L KNEE and L foot. Patient transferrd supine to sitting at EOB MIN A X 1. Patient sat on EOB with SBA. Patient transferred sit to stand with MAX A X 2 due to pain in the L LE. Patient was able to stand for < 10 seconds then had to sit on EOB. Patient sit to stand MAX A X 2, 2 Xs more with < 10 seconds stand each time due to pain. Patient stand pivot transfer with MAX A X 1 to low chair. Patient sit to stand transfer from low bedside chair with MAX A X 1 with verbal cues for pushing off of the chair armrests of chair. Patient requested to transfer back to supine in bed due to pain. Patient side-stepped up to head of bed with MIN A X 2. Patient transferred back to supine in bed with MIN A X 2. Patient was SCOOTED UP IN BED with SBA and verbal cues for pushing with R LE. Patient was left in supine with head of bed elevated, call light within reach, and bed alarm elevated. Patient was 1:1 with this AUTOMATIC DRILLER AND REAMER for 19 minutes total. JAROD LAU AUTOMATIC DRILLER AND REAMER
[2019-08-31 16:00] VITALS: BP 132/56
[2019-08-31 18:28] LABS: BILIRUBIN NEGATIVE (NEGATIVE); BLOOD TRACE-INTACT (NEGATIVE); CLARITY SL CLOUDY (CLEAR); COLOR YELLOW (YELLOW); GLUCOSE 2+ (NEGATIVE); KETONE NEGATIVE (NEGATIVE); LEUKO ESTERASE 1+ (NEGATIVE); NITRITE NEGATIVE (NEGATIVE); UROBILINOGEN 0.2 E.U./dl (0.2-1.0)
[2019-08-31 18:34] LABS: BACTERIA 1+; RBC 0-2 rbc/hpf (0-2); WBC TNTC wbc/hpf (0-5)
[2019-08-31 20:00] VITALS: BP 151/65
[2019-09-01] VITALS: BP 133/89
[2019-09-01 06:24] LABS: HEMATOCRIT 27.6 % (37.0-47.0); HEMOGLOBIN 8.7 g/dl (12.0-16.0); MEAN CORPUSCULAR HGB 31.5 pg (27.0-31.0); MEAN CORPUSCULAR HGB CONC 31.5 g/dl (33.0-37.0); MEAN PLATELET VOLUME 10.2 fl (9.6-12.3); PLATELET COUNT AUTOMATED 275 10*3/uL (130-400); RED BLOOD COUNT 2.76 10*6/uL (4.10-5.10); RED CELL DISTRI WIDTH 16.9 % (0-14.5); WHITE BLOOD COUNT 5.9 10*3/uL (4.8-10.8)
[2019-09-01 06:51] LABS: ALBUMIN 2.6 gm/dl (3.1-4.5); ALKALINE PHOSPHATASE 113 U/L (45-117); BUN 15 mg/dl (7-24); CHLORIDE 101 mmol/L (98-107); CREATININE 1.04 mg/dL (0.55-1.02); POTASSIUM 4.4 mmol/L (3.5-5.1); SGOT/AST 24 IU/L (3-35); SGPT/ALT 20 U/L (12-78); SODIUM 133 mmol/L (136-145)
--- NOTE | 2019-09-01 07:27 | NUR ---
PRECERT will need to be restarted. RIM FIRE CHARGER OPERATOR faxed updates to [facility]. -JOSE Morrow
[2019-09-01 07:41] LABS: ATYPICAL LYMPHS 1 % (0-0); PLATELET SUFFICIENCY NORMAL (NORMAL); TOTAL CELLS COUNTED 100 #CELLS
[2019-09-01 08:00] VITALS: BP 148/62
--- NOTE | 2019-09-01 09:00 | NUR ---
Patient Services Rep in to see patient. No new needs or request at this time. When medically stable and precert is received she will be discharged to [facility]. latex foam worker following. She is scheduled for a knee MRI today.
--- NOTE | 2019-09-01 09:23 | NUR ---
NORCO GIVEN FOR C/O LT KNEE PAIN, RATES 10/10 ON PAIN SCALE. WILL MONITOR.
--- NOTE | 2019-09-01 10:06 | NUR ---
PHYSICAL THERAPY PT RECEIVING MEDICAL TEST UPON ARRIVAL. PHYSICAL THERAPY WILL ATTEMPT AGAIN AT A LATER TIME/DATE. YOKASTA BECKWITH PTA
--- NOTE | 2019-09-01 10:30 | NUR ---
PRABHAKAR EFFECTIVE PER PT.
--- NOTE | 2019-09-01 10:55 | NUR ---
PHYSICAL THERAPY PT SUPINE IN BED UPON ARRIVAL. PT REPORTS PAIN IS OK THIS VISIT DUE TO JUST GETTING MEDS. PT AGREED TO ALL PT TREATMENT THIS VISIT. PT PEFORMED BED MOBILITY SUPINE TO SIT EOB WITH SBA WITH VC'S FOR SAFETY AND TECHNIQUE. PT PERFORMED STS 3X WITH Chelsea X2 WITH VC'S TO PUT WEIGHT INTO LLE. PT PERFORMED WEIGHT SHIFTS IN STANDING WITH Chelsea X2. PT PERFORMES SIT TO SUPINE WITH Chelsea X1 WITH VC'S TO DO MUCH POSSIBLE ON PTS OWN. PT REQUIRED MAXa X2 FOR MOVING UP IN BED. PT SUPINE IN BED WITH BED ALARM ON AND CALL LIGHT IN HAND AT END OF TREATMENT. PT REPORTED NO OTHER NEEDS AT THIS TIME. PT SEN 1:1 FOR 14 MIN. YOKASTA BECKWITH PTA
--- NOTE | 2019-09-01 11:14 | NUR ---
OT NOTE Pt was seen this A.M. 1:1 for 15 minute OT session. Upon arrival pt was supine in bed. Pt identified by name and and had complaints of 8/10 L knee and foot pain. Pt transferred supine to sit EOB with Elvira for assist with LLE. While sitting EOB pt donned B socks with SBA. Multiple sit to stand transfers completed from bed level with Elvira X 2 CHAIR CAR ATTENDANT with verbal prompts for correcting her posture and attempting to place weight through her LLE due to pt "guarding" and placing no weight through her LLE. Challenged pt's static standing tolerance needed for increased I in self care tasks and functional transfers. Pt was able to tolerate aprox 20-35 seconds before sitting due to pain. Pt then transferred back into bed sit to supine with Elvira for assist with LLE. There she was left with call light in hand, tray table in place, and bed alarm activated for safety. Continue with rec D/C plan to SNF. FITZ Bernard/David
--- NOTE | 2019-09-01 12:55 | NUR ---
OT NOTE Attempted to see pt this P.M. for OT session and upon arrival pt was out of the room for an MRI. Will check back at a later time/date and continue with POC as able. FITZ Bernard/David
[2019-09-01 13:00] VITALS: BP 153/69
[2019-09-01 16:00] VITALS: BP 152/63
[2019-09-01 20:00] VITALS: BP 153/101
--- NOTE | 2019-09-01 20:23 | NUR ---
NORCO GIVEN PER PATIENT REQUEST FOR PAIN RATED 9/10 IN HER LEFT KNEE AND LEFT FOOT. WILL ASSESS EFFECTIVENESS.
--- NOTE | 2019-09-01 21:56 | NUR ---
ABIDACO EFFECTIVE PER PATIENT. RESTING IN BED. CALL LIGHT WITHIN REACH.
--- NOTE | 2019-09-01 23:59 | NUR ---
24 HR chart check completed.
[2019-09-02] VITALS: BP 176/66
--- NOTE | 2019-09-02 00:58 | NUR ---
Patient resting quietly with no c/o discomfort. Respirations easy and regular. Vital signs stable. No overt distress. CALL LIGHT WITHIN REACH. LORI GREENE
--- NOTE | 2019-09-02 03:00 | NUR ---
PATIENT UP TO BEDSIDE COMMODE WITH 2 ASSIST. PATIENT ASKING FOR GRANDSON SEAMUS. SHE STATED SHE WAS AT "QUINN[facility]" HOUSE. REORIENTED PATIENT AND LET HER KNOW SHE WAS IN THE HOSPITAL AND WHY. PATIENT SEEMED TO THINK FOR A WHILE AND THEN SAID "OKAY". NO OTHER NEEDS AT THIS TIME. CALL LIGHT IN REACH. BED ALARM ON. BED LOCKED AND IN LOWEST POSITION. SIDE RAILS UP X2.
--- NOTE | 2019-09-02 06:26 | NUR ---
NORCO GIVEN PER PATIENT REQUEST FOR LEFT KNEE/FOOT PAIN RATED 7/10. WILL ASSESS EFFECTIVENESS.
[2019-09-02 06:53] LABS: HEMATOCRIT 27.7 % (37.0-47.0); HEMOGLOBIN 8.9 g/dl (12.0-16.0); MEAN CELL VOLUME 98.9 fl (81.0-99.0); MEAN CORPUSCULAR HGB 31.8 pg (27.0-31.0); MEAN CORPUSCULAR HGB CONC 32.1 g/dl (33.0-37.0); MEAN PLATELET VOLUME 10.3 fl (9.6-12.3); PLATELET COUNT AUTOMATED 304 10*3/uL (130-400); RED CELL DISTRI WIDTH 16.8 % (0-14.5); WHITE BLOOD COUNT 7.3 10*3/uL (4.8-10.8)
[2019-09-02 07:17] LABS: CREATININE 1.05 mg/dL (0.55-1.02); POTASSIUM 4.4 mmol/L (3.5-5.1)
[2019-09-02 07:28] LABS: ATYPICAL LYMPHS 1 % (0-0); PLATELET SUFFICIENCY NORMAL (NORMAL); POLYCHROMASIA SLIGHT; TOTAL CELLS COUNTED 100 #CELLS
[2019-09-02 08:00] VITALS: BP 181/72
--- NOTE | 2019-09-02 08:43 | NUR ---
OT NOTE Pt was seen this A.M. 1:1 for 23 minute OT session. Upon arrival pt was supine in bed. Pt identified by name and and had complaints of 10/10 L knee and foot pain. Pt transferred supine to sit EOB with Elvira for assist with LLE. Pt then donned B socks with SBA while seated. Multiple sit to stand transfers completed from bed level with modA X 2 PUBLIC MESSAGE SERVICE SUPERVISOR. Challenged pt's static standing tolerance needed for increased I in self care tasks and functional transfers, pt was able to tolerate aprox 20-40 seconds at a time before sitting due to fatigue. Throughout pt required min-modA due to pt placing no weight through her LLE. When weight was placed pt was able to tolerate aprox 5 seconds before lifting from the floor. Pt then transferred back into bed sit to supine with Elvira for assist with LLE. There she was left with call light in hand, tray table in place, and bed alarm activated for safety. Continue with rec D/C plan to SNF. FITZ Bernard/David
--- NOTE | 2019-09-02 09:00 | NUR ---
Store Stocker in to see patient. No new needs or request at this time. When medically stable and precert is received she will be discharged to [facility]. recycling worker following.
--- NOTE | 2019-09-02 09:06 | NUR ---
SHEET ROCK LAYER faxed updates to [facility]. -JOSE Morrow
--- NOTE | 2019-09-02 09:45 | NUR ---
PHYSICAL THERAPY Patient presented to therapy in supine in bed with head of bed eelvated and report of continued pain in the L LE. Patient's RN ZHANNA CASTILLO reports that the patient has cellulitis on the L LE and foot. Patient was identified by name and on wristband. Patient gives informed consent for treatment. Patient performed supine to sitting at EOB with MIN A X 1. Patient sat on EOB unassisted. Patient sit to stand from EOB with MOD A X 2, HOLDING 2 THERAPISTS HANDS SHE STOOD. Patient able to stand 3 seperate times for 40 seconds the first time, 43 seconds the 2nd time and 20 seconds the 3 rd time. Patient required MIN A X 2 to MOD A X 2 during standing tolerances. Patient side scooted on EOB up to head of bed with SBA. Patient transferred back to supine in bed with SBA. Patient moved up to head of bed with MAX A X 2. Patient was left in supine in bed with head of bed elevated and call light within reach. BED ALARM was activated. Patient was 1:1 with this ELECTRONIC EQUIPMENT INSTALLER for 20 minutes total. JAROD LAU ELECTRONIC EQUIPMENT INSTALLER
--- NOTE | 2019-09-02 12:52 | NUR ---
PRECERT is still pending. -JOSE Morrow
--- NOTE | 2019-09-02 13:04 | NUR ---
PRECERT has been obtained. Patient can go to [facility] if medically stable. -JOSE Morrow
--- NOTE | 2019-09-02 15:22 | NUR ---
OCCUPATIONAL THERAPY CO-SIGN I approve of the Occupational Therapy notes written above. NUBIA MIKE OTR/David
[2019-09-02 16:00] VITALS: BP 153/70
[2019-09-02 20:00] VITALS: BP 151/69
[2019-09-03] VITALS: BP 155/63
--- NOTE | 2019-09-03 01:27 | NUR ---
Patient resting quietly with no c/o discomfort. Respirations easy and regular. Vital signs stable. No overt distress. CALL LIGHT WITHIN REACH. LORI GREENE
--- NOTE | 2019-09-03 01:56 | NUR ---
24 HR chart check completed.
[2019-09-03 08:00] VITALS: BP 138/80
--- NOTE | 2019-09-03 08:40 | NUR ---
PHYSICAL THERAPY Patient seen this am 1:1 for therapy visit and was supine in bed upon therapist arrival. Patient identified by name / and reports no new c/o's at this time. Patient transfers supine to sit EOB with CGA and sit to stand MIN/MOD A with use st cane support. Patient demonstrated POOR upright posture and increased difficulty with L foot placement which caused her to loose her balance several times. This also made her very anxious and returned immediately to EOB sit to calm down. Patient introduced to walker for standing support and agreed to stand a second trial, demonstrating improved static standing posture / balance, MIN A. Patient able to take 5-6 forward steps, then 2-3 L sided steps prior to returning to supine in bed. Patient needed multiple v/c's for encouragemnt and safe step sequence and remained supine in bed with call light, tray table, telphone, bed alarm as breakfast arrived. Will continue per POC as tolerated, total treatment time 13 minutes. Hossein Amaya, SANITATION WORKER CLEANING EQUIPMENT
--- NOTE | 2019-09-03 09:31 | NUR ---
OT NOTE PATIENT SEEN OT THIS DATE 15 MINUTES. PATIENT IDENTIFIED BY NAME AND DATE OF . PATIENT IN BED UPON ARRIVAL SUPINE TO SIT EOB CGA. COMPLETED SIT TO STAND FROM BED MOD A. COMPLETED STAND TOLERANCE USE FWW SUPPORT APPROX 2 MINUTES X 1 STAND AND APPROX 1 MINUTE X SECOND STAND WITH MIN A REQUIRED MAINTAIN BALANCE WITH PATIENT UNSTEADY AND DEMONSTRATES DIFFICULTY BEARING FULL WEIGHT LLE WITH STAND TASKS. COMPLETED GROOMING TASK SEATED EOB SBA AFTER BYERS. COMPLETED UB DRESSING MIN A SWATHI GOWN AND MOD A LB DRESSING TASK WITH PATIENT REQUIRING USE BUE SUPPORT FWW WITH STAND COMPONENTS ADL TASK DUE TO DECREASE BALANCE. COMPLETED SIT TO SUPINE MIN A WITH PATIENT IN BED WITH HEAD OF BED ELEVATED AND ASISSTED PATIENT WITH BREAKFAST TRAY PLACEMENT WITH NO FURTHER NEEDS VERBALIZED. PATIENT WITH BED ALARM INTACT AND CALL LIGHT WITHIN REACH. CONTINUE TOWARDS PLAN OF CARE. JUAN BYRNES/ David
[2019-09-03] MEDS ORDERED: CATAPRES-TTS 10.1 MG T (10:05)
[2019-09-03] MEDS ORDERED: XARE15TA PO (10:05)
[2019-09-03] MEDS ORDERED: KEFLEX500 M1 PO (10:05)
[2019-09-03] MEDS ORDERED: Amitriptyline H10 MG PO (10:09)
[2019-09-03] MEDS ORDERED: GABAPENTIN100 M2 PO (10:09)
[2019-09-03] MEDS ORDERED: LIDOCAINE HC28.35 GM T (10:09)
[2019-09-03] MEDS ORDERED: PREDNISONE10 MG PO (10:10)
--- NOTE | 2019-09-03 10:53 | NUR ---
JOSE notified of patient discharge. JOSE spoke with RN who stated a 1pm pickup would be best. JOSE spoke with patients granddaughter Lizy Bose [phone]. She stated due to other commitments she could pick the patient up at 12:00pm today. BOX STRAPPER attempted to reach the RN there was no answer. JOSE spoke with Work Pantry Goods Makerjohanna Belcher. She stated that would inform the RN. BOX STRAPPER notified Viv of rock picker time and will fax discharge orders. -JOSE Morrow
--- NOTE | 2019-09-03 11:44 | NUR ---
NURSE TO NURSE REPORT GIVEN TO [facility].
--- NOTE | 2019-09-03 12:05 | NUR ---
Discharge instructions reviewed with patient/family. Patient receptive and verbalizes understanding. Follow-up care arranged. Written instructions given to patient/family. LUZ MARIA RAMON
--- NOTE | 2019-09-03 15:23 | NUR ---
PHYSICAL THERAPY CO-SIGN I approve of the Physical Therapy notes written above. Kim Arenas PT
--- NOTE | 2019-09-06 08:05 | NUR ---
PHYSICAL THERAPY CO-SIGN I approve of the Physical Therapy notes written above Kim Arenas PT
--- NOTE | 2019-09-06 16:13 | NUR ---
OCCUPATIONAL THERAPY CO-SIGN I approve of the Occupational Therapy notes written above. NUBIA MIKE OTR/David
== END 2019-09-03 12:05 | disposition other institution (70) | DRG 558 ==
LOC: ED 17:22 → 5E 19:27 → EDHOLD 19:27 → 5E 20:35
PROVIDERS: Family Medicine; Internal Medicine; Nurse Practitioner Family; ADMIT Internal Medicine
DX: M71.162 Other infective bursitis, left knee (principal); I82.412 Acute embolism and thrombosis of left femoral vein; E44.0 Moderate protein-calorie malnutrition; E87.1 Hypo-osmolality and hyponatremia; I13.0 Hypertensive heart and chronic kidney disease with heart failure and stage 1 through stage 4 chronic kidney disease, or unspecified chronic kidney disease; I50.42 Chronic combined systolic (congestive) and diastolic (congestive) heart failure; L03.116 Cellulitis of left lower limb; N39.0 Urinary tract infection, site not specified; Z68.1 Body mass index [BMI] 19.9 or less, adult; M81.0 Age-related osteoporosis without current pathological fracture; I08.1 Rheumatic disorders of both mitral and tricuspid valves; M17.12 Unilateral primary osteoarthritis, left knee; R53.1 Weakness; F03.90 Unspecified dementia, unspecified severity, without behavioral disturbance, psychotic disturbance, mood disturbance, and anxiety; D64.9 Anemia, unspecified; R00.0 Tachycardia, unspecified; E03.9 Hypothyroidism, unspecified; N18.3 Chronic kidney disease, stage 3 (moderate); M19.90 Unspecified osteoarthritis, unspecified site; E11.22 Type 2 diabetes mellitus with diabetic chronic kidney disease; M43.10 Spondylolisthesis, site unspecified; J44.9 Chronic obstructive pulmonary disease, unspecified; R29.6 Repeated falls; E83.39 Other disorders of phosphorus metabolism; I70.202 Unspecified atherosclerosis of native arteries of extremities, left leg; I25.10 Atherosclerotic heart disease of native coronary artery without angina pectoris; S93.402A Sprain of unspecified ligament of left ankle, initial encounter; W18.30XA Fall on same level, unspecified, initial encounter; Y93.89 Activity, other specified; Y92.89 Other specified places as the place of occurrence of the external cause; Y99.8 Other external cause status; Z95.1 Presence of aortocoronary bypass graft; I25.2 Old myocardial infarction; Z88.2 Allergy status to sulfonamides; Z90.49 Acquired absence of other specified parts of digestive tract; Z98.42 Cataract extraction status, left eye; Z98.41 Cataract extraction status, right eye; Z90.710 Acquired absence of both cervix and uterus; Z82.49 Family history of ischemic heart disease and other diseases of the circulatory system; Z80.8 Family history of malignant neoplasm of other organs or systems; Z79.899 Other long term (current) drug therapy; Z79.84 Long term (current) use of oral hypoglycemic drugs

== ENCOUNTER → 2020-12-14 | Outpatient (CLI) | payer OTHER ==
[~2020-12-14] MED LIST changes: +AMITRIPTYLINE25 MG PO; +Amitriptyline H10 MG PO; +CATAPRES-TTS 10.1 MG T; +CEPHALEXIN500 M1 PO; +GABAPENTIN100 M2 PO; +KEFLEX500 M1 PO; +LIDOCAINE HC28.35 GM T; +PREDNISONE10 MG PO; +XARE15TA PO
== END | disposition home or self-care (01) ==
LOC: RAD 12:21
PROVIDERS: ATTEND Nurse Practitioner Primary Care
DX: E11.621 Type 2 diabetes mellitus with foot ulcer (principal); L97.419 Non-pressure chronic ulcer of right heel and midfoot with unspecified severity; L03.818 Cellulitis of other sites

== ENCOUNTER → 2020-12-19 | Outpatient (CLI) | payer OTHER | LOC: CANPRECLI → WOUNDCARE 06:41 | PROVIDERS: ATTEND Surgery | DX: E11.621 Type 2 diabetes mellitus with foot ulcer (principal); L89.612 Pressure ulcer of right heel, stage 2; S81.802A Unspecified open wound, left lower leg, initial encounter; L03.114 Cellulitis of left upper limb; I25.10 Atherosclerotic heart disease of native coronary artery without angina pectoris; I70.234 Atherosclerosis of native arteries of right leg with ulceration of heel and midfoot; Z90.49 Acquired absence of other specified parts of digestive tract; Z90.710 Acquired absence of both cervix and uterus; Z79.4 Long term (current) use of insulin; Z79.899 Other long term (current) drug therapy; Z95.1 Presence of aortocoronary bypass graft; X58.XXXA Exposure to other specified factors, initial encounter; Y93.89 Activity, other specified; Y92.89 Other specified places as the place of occurrence of the external cause; Y99.8 Other external cause status ==

== ENCOUNTER → 2021-01-04 | Outpatient (CLI) | payer OTHER | LOC: WOUNDCARE 14:08 | PROVIDERS: ATTEND Nurse Practitioner | DX: E11.621 Type 2 diabetes mellitus with foot ulcer (principal); L89.612 Pressure ulcer of right heel, stage 2; S81.802D Unspecified open wound, left lower leg, subsequent encounter; E11.622 Type 2 diabetes mellitus with other skin ulcer; L97.822 Non-pressure chronic ulcer of other part of left lower leg with fat layer exposed; L03.114 Cellulitis of left upper limb; I25.10 Atherosclerotic heart disease of native coronary artery without angina pectoris; Z90.49 Acquired absence of other specified parts of digestive tract; Z90.710 Acquired absence of both cervix and uterus; Z79.4 Long term (current) use of insulin; Z79.899 Other long term (current) drug therapy; Z95.1 Presence of aortocoronary bypass graft; X58.XXXD Exposure to other specified factors, subsequent encounter ==

== ENCOUNTER 2021-01-25 13:38 | Emergency (ER) | payer OTHER ==
[~2021-01-25] VITALS: Ht 160 cm; Wt 59.0 kg
[~2021-01-25 13:38] MED LIST changes: -CEPHALEXIN500 M1 PO
[2021-01-25 13:44] VITALS: BP 129/91
[2021-01-25 16:11] LABS: BASO % 0.7 % (0.0-1.0); EOS # 0.1 10*3/uL (0.0-0.4); EOS % 2.3 % (1.0-4.0); HEMATOCRIT 31.7 % (37.0-47.0); LYMPH # 2.6 10*3/uL (1.3-4.4); LYMPH % 43.4 % (27.0-41.0); MEAN CELL VOLUME 97.8 fl (81.0-99.0); MEAN CORPUSCULAR HGB 32.7 pg (27.0-31.0); MEAN CORPUSCULAR HGB CONC 33.4 g/dl (33.0-37.0); MEAN PLATELET VOLUME 10.3 fl (9.6-12.3); MONO # 0.4 10*3/uL (0.1-1.0); MONO % 6.9 % (3.0-9.0); NEUT # 2.8 10*3/uL (2.3-7.9); NEUT % 45.7 % (47.0-73.0); PLATELET COUNT AUTOMATED 184 10*3/uL (130-400); RED BLOOD COUNT 3.24 10*6/uL (4.10-5.10); RED CELL DISTRI WIDTH 17.2 % (0-14.5); WHITE BLOOD COUNT 6.1 10*3/uL (4.8-10.8)
[2021-01-25 16:27] LABS: ALBUMIN 3.8 gm/dl (3.1-4.5); CREATININE 1.17 mg/dL (0.55-1.02); POTASSIUM 4.4 mmol/L (3.5-5.1); TOTAL PROTEIN 7.4 gm/dL (6.4-8.2)
[2021-01-25] MEDS ORDERED: CEPHALEXIN500 M1 PO (19:01)
== END 2021-01-25 19:08 | disposition home or self-care (01) ==
LOC: ED 13:38
PROVIDERS: Physician Assistant
DX: L03.116 Cellulitis of left lower limb (principal); Z88.2 Allergy status to sulfonamides; Z79.899 Other long term (current) drug therapy; Z90.49 Acquired absence of other specified parts of digestive tract; Z98.890 Other specified postprocedural states; Z95.1 Presence of aortocoronary bypass graft; Z90.711 Acquired absence of uterus with remaining cervical stump

== ENCOUNTER → 2021-02-01 | Outpatient (CLI) | payer OTHER ==
[~2021-02-01] MED LIST changes: +CEPHALEXIN500 M1 PO
== END ==
LOC: WOUNDCARE 02:03
PROVIDERS: ATTEND Nurse Practitioner
DX: E11.621 Type 2 diabetes mellitus with foot ulcer (principal); L89.610 Pressure ulcer of right heel, unstageable; L97.411 Non-pressure chronic ulcer of right heel and midfoot limited to breakdown of skin; L89.890 Pressure ulcer of other site, unstageable; L97.511 Non-pressure chronic ulcer of other part of right foot limited to breakdown of skin; S81.802D Unspecified open wound, left lower leg, subsequent encounter; E11.622 Type 2 diabetes mellitus with other skin ulcer; L97.822 Non-pressure chronic ulcer of other part of left lower leg with fat layer exposed; S90.414A Abrasion, right lesser toe(s), initial encounter; L03.114 Cellulitis of left upper limb; I25.10 Atherosclerotic heart disease of native coronary artery without angina pectoris; Z90.49 Acquired absence of other specified parts of digestive tract; Z90.710 Acquired absence of both cervix and uterus; Z79.4 Long term (current) use of insulin; Z79.899 Other long term (current) drug therapy; Z95.1 Presence of aortocoronary bypass graft; X58.XXXD Exposure to other specified factors, subsequent encounter; X58.XXXA Exposure to other specified factors, initial encounter; Y93.89 Activity, other specified; Y92.89 Other specified places as the place of occurrence of the external cause; Y99.8 Other external cause status

== ENCOUNTER 2021-03-23 22:59 | Emergency (ER) | payer OTHER ==
[~2021-03-23] VITALS: Ht 154.9 cm; Wt 49.9 kg
[2021-03-23] MEDS ORDERED: ASPIRIN ADULT L81 M1 PO (23:16)
[2021-03-23] MEDS ORDERED: TRULICITY3 MG/0.5 M SQ (23:16)
[2021-03-23] MEDS ORDERED: PLAVIX75 M1 PO (23:16)
[2021-03-24 00:02] LABS: BASO % 0.6 % (0.0-1.0); EOS # 0.1 10*3/uL (0.0-0.4); EOS % 1.6 % (1.0-4.0); HEMATOCRIT 31.9 % (37.0-47.0); LYMPH # 2.6 10*3/uL (1.3-4.4); LYMPH % 36.8 % (27.0-41.0); MEAN CELL VOLUME 94.7 fl (81.0-99.0); MEAN CORPUSCULAR HGB 32.3 pg (27.0-31.0); MEAN CORPUSCULAR HGB CONC 34.2 g/dl (33.0-37.0); MEAN PLATELET VOLUME 10.1 fl (9.6-12.3); MONO # 0.6 10*3/uL (0.1-1.0); MONO % 8.9 % (3.0-9.0); NEUT # 3.5 10*3/uL (2.3-7.9); NEUT % 50.7 % (47.0-73.0); PLATELET COUNT AUTOMATED 205 10*3/uL (130-400); RED BLOOD COUNT 3.37 10*6/uL (4.10-5.10); RED CELL DISTRI WIDTH 16.2 % (0-14.5)
[2021-03-24 00:29] LABS: CREATININE 1.29 mg/dL (0.55-1.02); POTASSIUM 3.7 mmol/L (3.5-5.1)
[2021-03-24 01:30] VITALS: BP 148/55
[2021-03-24] MEDS ORDERED: CEPHALEXIN500 M1 PO (02:20)
== END 2021-03-24 02:32 | disposition home or self-care (01) ==
LOC: ED 22:59
PROVIDERS: Internal Medicine
DX: I96 Gangrene, not elsewhere classified (principal); N17.9 Acute kidney failure, unspecified; N18.9 Chronic kidney disease, unspecified; D64.9 Anemia, unspecified; Z88.2 Allergy status to sulfonamides; Z79.899 Other long term (current) drug therapy; Z79.82 Long term (current) use of aspirin; Z90.49 Acquired absence of other specified parts of digestive tract; Z90.711 Acquired absence of uterus with remaining cervical stump; Z98.61 Coronary angioplasty status